=== PATIENT | male | born 1975 | race Caucasian/White ===

== ENCOUNTER 2019-04-15 09:27 | Outpatient (CLI) | payer OTHER ==
--- NOTE | 2019-04-15 11:08 | MMO ---
Bilateral MAMMO Bilat Diag [facility]. CLINICAL HISTORY: Patient is 43 years old and is seen for diagnostic exam. The patient has the following family history of breast cancer: maternal grandmother and maternal aunt. The patient has no personal history of cancer. VIEWS: The views performed were: bilateral craniocaudal with tomosynthesis; bilateral mediolateral oblique with tomosynthesis; and bilateral mediolateral with tomosynthesis. FILMS COMPARED: The present examination has been compared to a prior imaging study performed at [facility] on 04/15/2019. This study has been interpreted with the assistance of computer-aided detection. MAMMOGRAM FINDINGS: The breasts are almost entirely fat. There are no suspicious masses, suspicious calcifications, or new areas of architectural distortion. Please see ultrasound for full assessment of palpable findings on the left. IMPRESSION: THERE IS NO MAMMOGRAPHIC EVIDENCE OF MALIGNANCY. 3BTHE RESULTS OF THIS EXAM WERE SENT TO THE PATIENT.0B ACR BI-RADS Category 1 - Negative MAMMOGRAPHY NOTE: 1. A negative mammogram report should not delay a biopsy if a dominant of clinically suspicious mass is present. 2. Approximately 10% to 15% of breast cancers are not detected by mammography. 3. Adenosis and dense breasts may obscure an underlying neoplasm. Reported by: ELIN HENLEY MD Electonically Signed: [id number]
--- NOTE | 2019-04-15 12:16 | ULT ---
FOCUSED ULTRASOUND LEFT BREAST: DATE: 04/15/2019. HISTORY: Multiple superficial palpable abnormalities within the left breast, negative mammography. FINDINGS: Focused ultrasound of the left breast in the areas of palpable concern demonstrate 4 hyperechoic lesi ons centered within the subcutaneous adipose layer. This includes a lesion at the 11 o'clock positio n measuring 1.5 x 0.8 cm, a lesion at the 10 o'clock position measuring 1.2 x 0.5 cm, a lesion at the 12 o'clock position measuring 0.9 x 0.5 cm, and a lesion at the 11 o'clock position measuring 0.9 x 0.5 cm. All 4 of these lesions have similar echogenicity. No hypoechoic lesions. No abnormal shado wing. IMPRESSION: In the areas of palpable concern, there are superficial hyperechoic masses in the subcutaneous adipos e layer. These are favored to be small lipomas or areas of fat necrosis. Recommend clinical followup. If lesions grow in the future, repeat ultrasound or CT could be perform ed. POS: OFF
== END 2019-04-15 09:28 | disposition home or self-care (01) ==
LOC: BICMAMMO 09:27
PROVIDERS: ATTEND Family Medicine
DX: N63.20 Unspecified lump in the left breast, unspecified quadrant (principal)
CPT/HCPCS: 77066; G0279

== ENCOUNTER 2022-04-17 08:35 | Inpatient (IN) | payer BC, SELFPAY ==
[2022-04-17] MEDS ORDERED: Labetalol HCl 100 MG/20 ML VIAL ONE (10:40)
[2022-04-17 10:44] LABS: ALT (SGPT) 31 U/L (8-55); AST (SGOT) 23 U/L (5-34); Albumin 4.3 g/dL (3.5-5.0); Alkaline Phosphatase 75 U/L (40-110); Anion Gap 12 mmol/L (10-20); BUN (Urea Nitrogen) 16 mg/dL (8.9-20.6); Bilirubin, Total 0.8 mg/dL (0.2-1.2); Calc. Creatinine Clearance 0 mL/min (70-130); Carbon Dioxide 28 mmol/L (22-29); Chloride 103 mmol/L (98-107); Estimated GFR 107; Globulin 2.3 g/dL (2.4-3.5); Glucose 102 mg/dL (70-105); Potassium 4.1 mmol/L (3.5-5.1); Protein, Total 6.6 g/dL (6.0-8.3); Sodium 139 mmol/L (136-145)
[2022-04-17] MEDS ORDERED: Aspirin Chewable 81 MG TAB ONE (11:51)
[2022-04-17] MEDS ORDERED: niCARdipine 25 MG/10 ML VIAL ONE ×2 (12:14→16:11)
[2022-04-17 12:21] LABS: #Eosinphils 0.3 thou/uL (0.0-0.7); #Lymphocytes 1.7 thou/uL (1.20-3.40); #Monocytes 0.4 thou/uL (0.11-0.59); #Neutrophils 3.5 thou/uL (1.40-6.50); %Basophils 0.4 % (0.0-1.0); %Eosinophils 4.7 % (0.0-10.0); %Lymphocytes 29.2 % (21.0-51.0); %Monocytes 6.4 % (0.0-10.0); %Neutrophils 59.2 % (42.0-75.0); Hemoglobin 14.4 g/dL (14.0-18.0); Mean Corpuscular Hemoglobin 28.8 pg (27.0-31.0); Mean Corpuscular Volume 87.2 fL (78.0-98.0); Platelet Count 220 thou/uL (130-400); RBC Distribution Width 11.9 % (11.5-14.5); Red Blood Cell (RBC) Count 5.01 mill/uL (4.70-6.10); White Blood Cell (WBC) Count 5.9 thou/uL (4.8-10.8)
[2022-04-17] MEDS ORDERED: Morphine 4 MG/ML VIAL ONE (13:00)
[2022-04-17 13:49] LABS: SARS-CoV-2 NAA Rapid Test Not Detected (NotDetected)
[2022-04-17 15:51] LABS: Hemoglobin A1c 5.3 % (4.0-6.0)
[2022-04-17 16:04] LABS: Cardiac Risk 5.3 (Less than 4.5)
[2022-04-17 16:21] VITALS: BMI 41.8
[2022-04-17] MEDS ORDERED: Acetaminophen 325 MG TAB ONE (18:04)
[2022-04-17] MEDS: Acetaminophen 325 MG TAB PO PRN (18:06)
[2022-04-17] MEDS: niCARdipine 25 MG in Sodium Chloride 0.9% 250 ML 250 ML IVPB SCH (20:29)
[2022-04-18 03:34] LABS: #Basophils 0.1 thou/uL (0.0-0.2); #Eosinphils 0.4 thou/uL (0.0-0.7); #Lymphocytes 1.8 thou/uL (1.20-3.40); #Monocytes 0.5 thou/uL (0.11-0.59); #Neutrophils 5.2 thou/uL (1.40-6.50); %Eosinophils 4.5 % (0.0-10.0); %Lymphocytes 22.8 % (21.0-51.0); %Monocytes 6.4 % (0.0-10.0); %Neutrophils 65.2 % (42.0-75.0); Hemoglobin 14.6 g/dL (14.0-18.0); Mean Corpuscular HGB CONC 33.6 g/dL (32.0-36.0); Mean Corpuscular Hemoglobin 29.3 pg (27.0-31.0); Mean Corpuscular Volume 87.2 fL (78.0-98.0); Mean Platelet Volume 6.7 fL (7.4-10.4); Platelet Count 218 thou/uL (130-400); Red Blood Cell (RBC) Count 4.98 mill/uL (4.70-6.10)
[2022-04-18] MEDS: hydrALAZINE 20 MG/ML VIAL SLOW IVP PRN ×2 (03:52→16:57)
[2022-04-18 04:05] LABS: ALT (SGPT) 29 U/L (8-55); AST (SGOT) 18 U/L (5-34); Albumin 4.1 g/dL (3.5-5.0); Alkaline Phosphatase 72 U/L (40-110); Anion Gap 11 mmol/L (10-20); BUN (Urea Nitrogen) 13 mg/dL (8.9-20.6); Bilirubin, Total 0.7 mg/dL (0.2-1.2); Calc. Creatinine Clearance 206 mL/min (70-130); Calcium 8.9 mg/dL (7.8-10.44); Carbon Dioxide 29 mmol/L (22-29); Chloride 102 mmol/L (98-107); Estimated GFR 110; Globulin 2.6 g/dL (2.4-3.5); Glucose 120 mg/dL (70-105); Potassium 3.6 mmol/L (3.5-5.1); Protein, Total 6.7 g/dL (6.0-8.3); Sodium 138 mmol/L (136-145)
[2022-04-18] MEDS: Acetaminophen 325 MG TAB PO PRN ×3 (06:42→20:19)
[2022-04-18] MEDS ORDERED: Lisinopril 10 MG TAB PO SCH (08:00)
[2022-04-18] MEDS ORDERED: Lisinopril/Hydrochlorothiazide 10 mg/12.5 mg Tablet PO SCH (09:00)
[2022-04-18] MEDS: niCARdipine 25 MG in Sodium Chloride 0.9% 250 ML 250 ML IVPB SCH (09:57)
[2022-04-18] MEDS: NIFEdipine XL 30 MG TAB PO SCH (20:18)
[2022-04-19 04:02] LABS: #Eosinphils 0.4 thou/uL (0.0-0.7); Mean Corpuscular Volume 86.8 fL (78.0-98.0)
[2022-04-19 04:10] LABS: #Basophils 0.1 thou/uL (0.0-0.2); #Lymphocytes 1.8 thou/uL (1.20-3.40); #Monocytes 0.6 thou/uL (0.11-0.59); #Neutrophils 6.1 thou/uL (1.40-6.50); %Basophils 0.6 % (0.0-1.0); %Eosinophils 4.2 % (0.0-10.0); %Lymphocytes 20.1 % (21.0-51.0); %Monocytes 6.3 % (0.0-10.0); %Neutrophils 68.9 % (42.0-75.0); Hemoglobin 15.2 g/dL (14.0-18.0); Mean Corpuscular HGB CONC 33.2 g/dL (32.0-36.0); Mean Corpuscular Hemoglobin 28.9 pg (27.0-31.0); Mean Platelet Volume 6.8 fL (7.4-10.4); Platelet Count 254 thou/uL (130-400); RBC Distribution Width 11.9 % (11.5-14.5); Red Blood Cell (RBC) Count 5.28 mill/uL (4.70-6.10); White Blood Cell (WBC) Count 8.8 thou/uL (4.8-10.8)
[2022-04-19 04:31] LABS: Phosphorus 3.1 mg/dL (2.3-4.7)
[2022-04-19 04:33] LABS: ALT (SGPT) 27 U/L (8-55); AST (SGOT) 15 U/L (5-34); Albumin 4.2 g/dL (3.5-5.0); Alkaline Phosphatase 76 U/L (40-110); Anion Gap 11 mmol/L (10-20); BUN (Urea Nitrogen) 13 mg/dL (8.9-20.6); Calc. Creatinine Clearance 206 mL/min (70-130); Calcium 8.9 mg/dL (7.8-10.44); Carbon Dioxide 25 mmol/L (22-29); Chloride 104 mmol/L (98-107); Estimated GFR 110; Globulin 2.6 g/dL (2.4-3.5); Glucose 112 mg/dL (70-105); Magnesium 2.6 mg/dL (1.6-2.6); Potassium 3.7 mmol/L (3.5-5.1); Protein, Total 6.8 g/dL (6.0-8.3); Sodium 136 mmol/L (136-145)
[2022-04-19] MEDS: NIFEdipine XL 30 MG TAB PO SCH ×2 (08:26→20:58)
[2022-04-19 11:55] LABS: Amphetamine Not Detected (NotDetected); Barbiturates Screen Not Detected (NotDetected); Benzodiazepine Screen Not Detected (NotDetected); Cocaine Metabolite Screen Not Detected (NotDetected); Methadone Not Detected (NotDetected); Methamphetamine Not Detected (NotDetected); Opiate Screen Not Detected (NotDetected); Oxycodone Screen Not Detected (NotDetected); Phencyclidine (PCP) Not Detected (NotDetected); THC/Cannabinoid Screen Not Detected (NotDetected); Tricyclic Screen Not Detected (NotDetected)
[2022-04-19] MEDS: hydrALAZINE 25 MG TAB PO SCH (20:58)
[2022-04-19] MEDS ORDERED: Atorvastatin Calcium 40 MG TAB PO SCH (21:00)
[2022-04-19] MEDS ORDERED: Enoxaparin Sodium 40 MG/0.4 ML SYRINGE SC SCH (21:00)
[2022-04-20 06:49] LABS: #Eosinphils 0.3 thou/uL (0.0-0.7); #Lymphocytes 2.1 thou/uL (1.20-3.40); #Monocytes 0.5 thou/uL (0.11-0.59); #Neutrophils 4.8 thou/uL (1.40-6.50); %Basophils 0.2 % (0.0-1.0); %Lymphocytes 26.6 % (21.0-51.0); %Monocytes 6.8 % (0.0-10.0); %Neutrophils 62.5 % (42.0-75.0); Hemoglobin 15.3 g/dL (14.0-18.0); Mean Corpuscular HGB CONC 33.9 g/dL (32.0-36.0); Mean Corpuscular Hemoglobin 29.6 pg (27.0-31.0); Mean Corpuscular Volume 87.3 fL (78.0-98.0); Mean Platelet Volume 6.8 fL (7.4-10.4); Platelet Count 220 thou/uL (130-400); RBC Distribution Width 11.9 % (11.5-14.5); Red Blood Cell (RBC) Count 5.16 mill/uL (4.70-6.10); White Blood Cell (WBC) Count 7.8 thou/uL (4.8-10.8)
[2022-04-20 07:08] LABS: Anion Gap 12 mmol/L (10-20); BUN (Urea Nitrogen) 16 mg/dL (8.9-20.6); Calc. Creatinine Clearance 206 mL/min (70-130); Calcium 9.1 mg/dL (7.8-10.44); Carbon Dioxide 25 mmol/L (22-29); Chloride 105 mmol/L (98-107); Estimated GFR 110; Glucose 103 mg/dL (70-105); Potassium 4.1 mmol/L (3.5-5.1); Sodium 138 mmol/L (136-145)
[2022-04-20] MEDS: hydrALAZINE 25 MG TAB PO SCH (08:21)
[2022-04-20] MEDS: NIFEdipine XL 30 MG TAB PO SCH (08:21)
[2022-04-20 08:59] VITALS: BP 144/83; TEMP 98.7
[2022-04-22 12:37] LABS: Metanephrine,Plasma 27.3 pg/mL (0.0-88.0); Normetanephrine,Pl 109.5 pg/mL (0.0-218.9)
== END 2022-04-20 11:30 | disposition home or self-care (01) | DRG 305 ==
LOC: ERS 08:35 → ERHOLD 11:52 → CCU 19:49 → T4-B 04-19 10:51
PROVIDERS: ADMIT Internal Medicine; ATTEND Family Medicine
DX: I16.0 Hypertensive urgency (principal); I16.9 Hypertensive crisis, unspecified; I16.1 Hypertensive emergency; Z68.41 Body mass index [BMI] 40.0-44.9, adult; Z20.822 Contact with and (suspected) exposure to COVID-19; E66.9 Obesity, unspecified; D32.9 Benign neoplasm of meninges, unspecified; Z88.1 Allergy status to other antibiotic agents; Z88.2 Allergy status to sulfonamides
CPT/HCPCS: 36415; 70450; 70553; 71045; 76700; 76770; 80048; 80053; 80061; 80306; 82088; 83036; 83735; 83835; 84100; 84244; 84443; 84484; 85025; 93005; 93306; 93975; 94760; 96365; 96366; 96375; J0360; J1650; J2270; J7050; U0002